=== PATIENT | female | born 1950 | race African-American/Black ===

== ENCOUNTER 2017-01-02 05:52 | Observation (INO) ==
[2017-01-02] MEDS ORDERED: NS 1,000 ML IV ONE (06:33)
[2017-01-02] MEDS ORDERED: SALINE FLUSH 10ml SYRINGE IVF PRN (06:33)
--- OUTSIDE RECORDS SUMMARY | 2017-01-02 06:46 | External Medical Summary ---
:1950 Author Organization eClinicalWorks Care Team Providers Name Role Phone Nate Brock Provider Role Unavailable Allergies No Known Allergies Problems Problem Type Condition Code Onset Dates Condition Status Problem Angina pectoris I20.9 Active Problem Hypertension I10 Active Problem Palpitation R00.2 Active Assessment Angina pectoris I20.9 Active Medications Medication Code System Code Instructions Start Date End Date Status Dosage Nitrostat [facility] 75336-419 0.4 MG Sublingual May 07, as directed 8-13 as needed for 2015 chest pain Results No Known Results Summary Purpose eClinicalWorks Submission
--- NOTE | 2017-01-02 06:56 | Emergency Department Report ---
Abdominal Pain HPI - General Chief Complaint: Abdominal Pain Stated Complaint: upper abd pain Time Seen by Provider: 01/02/17 06:33 Source: patient Mode of arrival: ambulatory Limitations: no limitations - History of Present Illness HPI narrative: 66yo woman presents to the ER this AM with epigastric abdominal pain. Pain became severe this AM around 0200; it woke pt from sleep. She has a h/o acid reflux - takes nexium daily. She also has a 'cardiac history'. Pt took prilosec , nexium, and ibuprofen without relief of her sx. She has had a cholecystectomy , appendectomy, and hysterectomy. No known h/o SBO. MD complaint: abdominal pain Onset (ago): hour(s) Consistency: constant Location: epigastric Severity: severe Severity scale (1-10): 8 Quality: cramping, stabbing, sharp Radiation: none Migration to: no migration Relieving factors: nothing Exacerbating factors: movement Context: history of similar episodes Associated symptoms: denies other symptoms Treatments prior to arrival: NSAIDs, antacids - Related Data Home Medications Medication Instructions Recorded Confirmed Amlodipine Besylate 5 mg PO DAILY #0 03/06/15 01/02/17 Aspirin 81 mg PO DAILY #0 03/06/15 01/02/17 Calcium Carb/Vitamin D3/Vit K1 1 tab PO DAILY #0 03/06/15 01/02/17 [Calcium + D Soft Chewable Tab] hydroCHLOROthiazide 25 mg PO DAILY #0 03/06/15 01/02/17 [Hydrochlorothiazide] Clopidogrel Bisulfate [Plavix] 75 mg PO DAILY #0 02/02/16 01/02/17 Ferrous Sulfate (Iron) 65 mg PO QID #0 02/02/16 01/02/17 Hydrocodone/Acetaminophen 1 tab PO QID PRN #0 02/02/16 01/02/17 [Hydrocodon-Acetaminoph 7.5-325] Propranolol HCl 20 mg PO DAILY #0 02/02/16 01/02/17 Levothyroxine Sodium 25 mcg PO DAILY 01/02/17 01/02/17 Omeprazole 20 mg PO DAILY 01/02/17 01/02/17 Pantoprazole Sodium [Protonix] 1 tab PO ACB 01/02/17 01/02/17 Previous Rx's Medication Instructions Recorded Hydromorphone [Dilaudid] 1 mg IVP Q3H PRN vial 01/02/17 Ondansetron Inj [Zofran] 4 mg IVP Q6H PRN vial 01/02/17 Piperacillin/Tazobactam [Zosyn] 3.375 gm IV Q6H vial 01/02/17 Allergies Allergy/AdvReac Type Severity Reaction Status Date / Time dicyclomine Allergy Severe BLISTERING, Verified 01/02/17 07:56 N/V gabapentin Allergy Unknown Verified 01/02/17 07:56 ketorolac Allergy Unknown HIVES Verified 01/02/17 07:56 lisinopril Allergy Unknown Verified 01/02/17 07:56 losartan Allergy Unknown Verified 01/02/17 07:56 monosodium glutamate Allergy Unknown ANAPHYLACTIC Verified 01/02/17 07:56 SHOCK NSAIDS (Non-Steroidal Allergy Unknown Verified 01/02/17 07:56 Anti-Inflamma pregabalin Allergy Unknown Verified 01/02/17 07:56 Sulfa (Sulfonamide Allergy Unknown Verified 01/02/17 07:56 Antibiotics) tramadol Allergy Unknown Verified 01/02/17 07:56 SSRI Allergy Unknown Uncoded 01/02/17 07:56 Review of Systems All systems: reviewed and negative except as stated Gastrointestinal: Reports: as per HPI, abdominal pain, nausea PFSH Medical History Updates: HTN. Hypothyroid. CAD. HL. Iron def anemia. Osteopenia Physical Exam - Limitations Limitations: no limitations - General General appearance: alert, in no apparent distress - Normal Exams: Head:: Normocephalic without trauma Eyes:: Pupils are PERRLA w/ EOMI, No scleral icterus, irritation, or foreign bodies noted ENMT:: No facial trauma, nasal exudates, pharyngeal erythema, or exudates are noted Neck:: Full range of motion, without adenopathy Lymphatic:: No lymphadenopathy Musculoskeletal:: No tenderness, or deformity noted Integumentary:: No rashes, hives, or bruising noted Neurological:: Patient is alert, and oriented Psychiatric:: Patient exhibits, appropriate attention - Chest Chest inspection: Present: normal inspection, symmetric chest wall rise. Absent : tenderness, rash - Respiratory Respiratory exam: Present: normal lung sounds bilaterally. Absent: respiratory distress, wheezes, prolonged expiratory phase - Cardiovascular Cardiovascular exam: Present: bradycardia, irregular rhythm (Occasional extra beats), normal heart sounds, +S1, +S2. Absent: systolic murmur, diastolic murmur, +S3, +S4 - Abdominal Exam Abdominal exam: Present: soft, tenderness, normal bowel sounds, Li's sign. Absent: distention, guarding, rebound, rigidity, psoas sign, obturator sign, heel tap sign, Rovsing's sign, tenderness at McBurney's Point, hernia Abdominal tenderness: Present: RUQ, RLQ, epigastrium Course - Consultations Consultation #1: Dr. Mckinney: If pt needs intervention, will not be able to treat here. Would need GI specialist. Recommend discussion with hospitalist to determine dispo. Time: 09:52 Consultation #2: Hospitalist: Willing to admit pt. Time: 09:53 Consultation #3: [facility]: Dr. King will accept; may take several hours for a bed to open up. Time: 09:59 Vital Signs Temperature 97.8 F 01/02/17 05:53 Pulse Rate 90 01/02/17 05:53 Respiratory Rate 16 01/02/17 05:53 Blood Pressure 141/65 H 01/02/17 05:53 Pulse Oximetry 95 01/02/17 05:53 Temperature 97.8 F 01/02/17 05:53 Pulse Rate 58 L 01/02/17 06:49 Respiratory Rate 16 01/02/17 05:53 Blood Pressure 141/65 H 01/02/17 05:53 Pulse Oximetry 95 01/02/17 05:53 Abdominal Pain - MDM Narrative Medical decision making narrative: After discussing LFT elevation, and after ordering follow up testing to determine source of liver failure, pt then begins to admit that she may be taking 'too much' tylenol. Uses norco for fibromyalgia pain and has been using extra strength tylenol for tooth. Based on what pt describes, pt is taking 3200- 3300mg daily. Pt unable to give UA until almost 2.5hrs into ER visit. After discussion with GS and hospitalist, contacted [facility] at pts preference. Dr. King accepts pt for txfr, when bed available. After waiting for 2 hours, [facility] will not have an ICU bed available until this evening. Hospitalist contacted for obs admission until bed available; pt accepted for obs in CCU. - Differential Diagnosis Differential diagnosis: Likely: abdominal pain, calculus of kidney, constipation , diverticulitis, gastroenteritis, pancreatitis, small bowel obstruction - Medical Records Attestation: I reviewed the patient's medical records. - Lab Data Attestation: I reviewed the patient's lab results. Result diagrams: 01/02/17 06:48 01/02/17 06:48 - Radiology Data Attestation: I reviewed the patient's radiology results. KUB: Impression: 1. Increased basilar markings some possibly due to some bibasilar mild atelectatic change with no cardiac decompensation identified. 2. Moderate volume of stool with overall nonspecific gas pattern. CT Abd/pelv: Impression: 1. Particularly prominent extra hepatic portion of the biliary tree measuring 2 cm. Patient did show pneumobilia and slight prominence of the bile ducts. Gallbladder has been previously removed. 2. Multiple small nonobstructing stones in the right kidney. 3. No obstruction to the bowel or inflammatory changes noted. 4. Multiple calcifications are both sides of the pelvis although, none definitively suggests being in the distal ureters. Neither kidney showed obstructive uropathy. - EKG Data EKG #1 EKG attestation: Yes: I reviewed and interpreted this EKG. EKG shows normal: sinus rhythm, axis, intervals, QRS complexes, ST-T waves Rate: bradycardia Disposition Clinical Impression: Transaminitis, Pneumobilia Disposition: 02 To [facility] Condition: Stable for Transport Time of Disposition: 11:36 - Seen By: physician
[2017-01-02] MEDS ORDERED: ONDANSETRON 4 MG/2 ML INJECTION IVP ONE ×2 (07:04→07:59)
[2017-01-02] MEDS ORDERED: MORPHINE SULFATE 2mg INJECTION IVP ONE (07:13)
--- NOTE | 2017-01-02 08:05 | XRay Report ---
Indication: Abd pain XR acute abdomen series: Comparison: None Technique: Single view chest supine and erect films of the abdomen Findings: Patient shows shallow inspiratory effort with some mild probable basilar atelectasis or chronic scarring. Heart is not enlarged and no central vascular congestion is appreciated. Supine and erect films of the abdomen showed moderate volume of stool in the bowel without free air or localized point of obstruction. Mild rotoscoliosis in the thoracolumbar spine without any individual vertebral body showing acute abnormality. Impression: 1. Increased basilar markings some possibly due to some bibasilar mild atelectatic change with no cardiac decompensation identified. 2. Moderate volume of stool with overall nonspecific gas pattern. .
[2017-01-02] MEDS: MORPHINE SULFATE 4mg INJECTION IVP PRN ×3 (08:09→18:40)
--- NOTE | 2017-01-02 09:46 | CT Scan Report ---
Indication: Abd pain; hepatitis CT abdomen pelvis w con: Comparison: Plain film the abdomen 01/02/2017 Technique: Patient scanned from above the diaphragm to below the pubic symphysis after 90 cc Omni 300 intravenous contrast is utilized. Dose reduction imaging technology is used with reformatted sagittal and coronal images. Findings: Heart size is within normal limits. Bilateral atelectatic changes are seen in the lung bases. Liver shows pneumobilia. The common duct is quite prominent measuring nearly 2 cm pancreatic head. The gallbladder has been previously removed. Pancreas showed no focal lesions. The pancreatic duct is measuring 3 mm. Spleen is normal in size and texture. Kidneys demonstrate similar function. Nonobstructing stones are identified on the right side where patient showed several stones measuring from 3 to 5 mm. Retroperitoneum is unremarkable. Visualized small and large bowel showed no acute findings. Bladder contour is unremarkable. Multiple soft tissue calcifications are seen in both sides of the pelvis. Neither ureter seem significantly dilated. Reformatted imaging showed degenerative changes particularly at the mid lumbar region where there is disc space narrowing and degenerative changes noted. No acute fracture seen. Impression: 1. Particularly prominent extra hepatic portion of the biliary tree measuring 2 cm. Patient did show pneumobilia and slight prominence of the bile ducts. Gallbladder has been previously removed. 2. Multiple small nonobstructing stones in the right kidney. 3. No obstruction to the bowel or inflammatory changes noted. 4. Multiple calcifications are both sides of the pelvis although, none definitively suggests being in the distal ureters. Neither kidney showed obstructive uropathy. .
[2017-01-02] MEDS ORDERED: PIPERACILLIN/TAZOBACTAM 3.375 GM in NS 100 ML IV ONE (09:58)
[2017-01-02] MEDS ORDERED: HYDROMORPHONE 2 MG/ML INJECTION IVP ONE (09:58)
[2017-01-02] MEDS ORDERED: ONDANSETRON 4 MG/2 ML INJECTION IVP PRN (12:18)
[2017-01-02] MEDS: NS 1,000 ML IV SCH ×2 (12:35→20:18)
[2017-01-02] MEDS ORDERED: HYDROMORPHONE 2 MG/ML INJECTION IVP PRN (13:07)
[2017-01-02] MEDS: PIPERACILLIN/TAZOBACTAM 3.375 GM in NS 100 ML IV SCH ×2 (13:24→18:34)
[2017-01-02] MEDS: HYDROMORPHONE 2 MG/ML INJECTION IVP PRN ×3 (13:29→20:41)
--- NOTE | 2017-01-02 13:39 | History & Physical Report ---
<Gracie Duncan - Last Filed: 01/02/17 13:41> History of Present Illness Date: 01/02/17 Chief complaint: abdominal pain HPI: Patient is a 66 yo female who presented to ER this am with abdominal pain which became severe at 0200. Pt states the pain woke her from sleep. She took Prilosec, Nexium and ibuprofen w/o relief. She usually takes Nexium qd for GERD. She state she started having pain about 3-4 days ago but it became severe early this am. She started having nausea and vomiting today. Last p.o. intake was last evening. Rates current pain at 8/10 (this is after she has had morphine and Dilaudid in ER.) She reports she routinely takes [place] 7.5 - 2 pills BID for fibromyalgia pain. States she had some abdominal pain 2-3 weeks ago but it was never this bad and it spontaneously resolved. She has problems with off and on constipation/diarrhea. Per ER note: "After discussing LFT elevation, and after ordering follow up testing to determine source of liver failure, pt then begins to admit that she may be taking 'too much' tylenol. Uses norco for fibromyalgia pain and has been using extra strength tylenol for tooth. Based on what pt describes, pt is taking 3200-3300mg daily." Patient interviewed and examined in the ED with her sister at the bedside. Patient is clearly in pain and sedated. SHe is able to answer questions but frequently dozes off. Review of Systems All systems PM: 10-point ROS was reviewed, no additional remarkable complaints except - Constitutional Constitutional: Present: fatigue - Respiratory Respiratory Comments: Pain in abdomen with deep breathing - Gastrointestinal Gastrointestinal: Present: abdominal pain, nausea, vomiting PFSH Past medical history Hypertension Hyperlipidemia Coronary artery disease Chronic kidney disease Hypothyroidism Diverticulosis Osteoarthritis Osteopenia Iron deficiency anemia Surgical History: Hysterectomy/BSO, cardiac stent (2017), appendectomy, cholecystectomy Family History: Dad at age 58-COPD, CAD Mother at age 80-CVA, bladder cancer, heart problems Sister-hypertension, osteoarthritis - Social History Smoking status: Never smoker Substance use type: does not use Alcohol intake frequency: holidays/special occasions only Housing: apartment Household members: significant other Current occupational status: retired Social history: PCP-Dr. Howard [employer]-Dr. Brock DPOA-H is her sister, Manuela Medications Home Medications Medication Instructions Recorded Confirmed Type Amlodipine Besylate 5 mg PO DAILY #0 03/06/15 01/02/17 History Aspirin 81 mg PO DAILY #0 03/06/15 01/02/17 History Calcium Carb/Vitamin D3/Vit K1 1 tab PO DAILY #0 03/06/15 01/02/17 History [Calcium + D Soft Chewable Tab] hydroCHLOROthiazide 25 mg PO DAILY #0 03/06/15 01/02/17 History [Hydrochlorothiazide] Clopidogrel Bisulfate [Plavix] 75 mg PO DAILY #0 02/02/16 01/02/17 History Ferrous Sulfate (Iron) 65 mg PO QID #0 02/02/16 01/02/17 History Hydrocodone/Acetaminophen 1 tab PO QID PRN #0 02/02/16 01/02/17 History [Hydrocodon-Acetaminoph 7.5-325] Propranolol HCl 20 mg PO DAILY #0 02/02/16 01/02/17 History Levothyroxine Sodium 25 mcg PO DAILY 01/02/17 01/02/17 History Omeprazole 20 mg PO DAILY 01/02/17 01/02/17 History Pantoprazole Sodium [Protonix] 1 tab PO ACB 01/02/17 01/02/17 History Allergies Allergy/AdvReac Type Severity Reaction Status Date / Time dicyclomine Allergy Severe BLISTERING, Verified 01/02/17 07:56 N/V gabapentin Allergy Unknown Verified 01/02/17 07:56 ketorolac Allergy Unknown HIVES Verified 01/02/17 07:56 lisinopril Allergy Unknown Verified 01/02/17 07:56 losartan Allergy Unknown Verified 01/02/17 07:56 monosodium glutamate Allergy Unknown ANAPHYLACTIC Verified 01/02/17 07:56 SHOCK NSAIDS (Non-Steroidal Allergy Unknown Verified 01/02/17 07:56 Anti-Inflamma pregabalin Allergy Unknown Verified 01/02/17 07:56 Sulfa (Sulfonamide Allergy Unknown Verified 01/02/17 07:56 Antibiotics) tramadol Allergy Unknown Verified 01/02/17 07:56 SSRI Allergy Unknown Uncoded 01/02/17 07:56 Exam Vital Signs: Temperature 97.8 F 01/02/17 05:53 Pulse Rate 106 H 01/02/17 12:30 Respiratory Rate 20 01/02/17 12:00 Blood Pressure 147/70 H 01/02/17 12:00 Pulse Oximetry 91 01/02/17 11:30 - Constitutional Present: moderate distress (appears to be in pain, drowsy from pain medication) , well nourished, well developed - Routine HEENT Exam Head: Present: normocephalic, atraumatic Eye: Present: EOMI, PERRL ENT: Present: mucous membranes dry, oropharynx clear - Routine Neck Exam Present: supple. Absent: lymphadenopathy - Routine Respiratory Exam Present: CTA bilaterally. Absent: wheezes - Routine Cardiovascular Exam Present: RRR, S1, S2. Absent: murmur - Routine Abdominal Exam Present: soft, tenderness (significant tenderness in the left upper quadrant and epigastric region. Mild to moderate tenderness diffuse), non distended. Absent: normoactive bowel sounds (hypoactive bowel sounds), rigid - Routine Extremities Exam Present: no edema, normal capillary refill - Routine Skin Exam Present: dry, warm - Routine Neurological Exam Present: oriented X3, CN II-XII intact. Absent: alert (drowsy, but able to answer questions appropriately) - Routine Psychiatric Exam Present: normal affect, cooperative Results - Labs CBC & Chem 7: 01/02/17 06:48 01/02/17 06:48 Labs: Laboratory Tests 01/02/17 01/02/17 01/02/17 06:48 08:53 08:53 Salicylates < 1.0 L Urine Opiates Screen Positive Ur Oxycodone Screen Negative Urine Methadone Screen Negative Ur Propoxyphene Screen Negative Acetaminophen < 10 L Ur Barbiturates Screen Negative U Tricyclic Antidepress Negative Ur Phencyclidine Scrn Negative Ur Amphetamines Screen Negative U Methamphetamines Scrn Negative U Benzodiazepines Scrn Positive Urine Cocaine Screen Negative U Cannabinoids Screen Negative Ur Drug Screen Confirm Sent out Ur Drug Screen Info Pending Alcohol, Quantitative <10 Laboratory Tests 01/02/17 01/02/17 06:48 08:53 AST 287 H ALT 152 H Alkaline Phosphatase 150 H Troponin I < 0.012 Lipase 182 Ur Collection Type Urine, clean catch Urine Color Yellow Urine Clarity Clear Urine pH 6.5 Ur Specific Picher 1.010 L Urine Protein Negative Urine Glucose (UA) Negative Urine Ketones Negative Urine Occult Blood Negative Urine Nitrate Negative Urine Bilirubin Negative Urine Urobilinogen 1.0 Ur Leukocyte Esterase Negative - ECG Data Tracing #1 Arrhythmias present: sinus darien - Imaging and Cardiology Abdominal x-ray Additional comments: Impression: 1. Increased basilar markings some possibly due to some bibasilar mild atelectatic change with no cardiac decompensation identified. 2. Moderate volume of stool with overall nonspecific gas pattern. CT scan - abdomen Additional comments: Indication: Abd pain; hepatitis CT abdomen pelvis w con: Comparison: Plain film the abdomen 01/02/2017 Technique: Patient scanned from above the diaphragm to below the pubic symphysis after 90 cc Omni 300 intravenous contrast is utilized. Dose reduction imaging technology is used with reformatted sagittal and coronal images. Findings: Heart size is within normal limits. Bilateral atelectatic changes are seen in the lung bases. Liver shows pneumobilia. The common duct is quite prominent measuring nearly 2 cm pancreatic head. The gallbladder has been previously removed. Pancreas showed no focal lesions. The pancreatic duct is measuring 3 mm. Spleen is normal in size and texture. Kidneys demonstrate similar function. Nonobstructing stones are identified on the right side where patient showed several stones measuring from 3 to 5 mm. Retroperitoneum is unremarkable. Visualized small and large bowel showed no acute findings. Bladder contour is unremarkable. Multiple soft tissue calcifications are seen in both sides of the pelvis. Neither ureter seem significantly dilated. Reformatted imaging showed degenerative changes particularly at the mid lumbar region where there is disc space narrowing and degenerative changes noted. No acute fracture seen. Impression: 1. Particularly prominent extra hepatic portion of the biliary tree measuring 2 cm. Patient did show pneumobilia and slight prominence of the bile ducts. Gallbladder has been previously removed. 2. Multiple small nonobstructing stones in the right kidney. 3. No obstruction to the bowel or inflammatory changes noted. 4. Multiple calcifications are both sides of the pelvis although, none definitively suggests being in the distal ureters. Neither kidney showed obstructive uropathy. . Assessment and Plan (1) Pneumobilia Current visit: Yes Status: Acute (2) Transaminitis Current visit: Yes Status: Acute (3) Abdominal pain Current visit: Yes Status: Acute DVT Prophylaxis: SCD's Resuscitation Status: Full Code Assessment and Plan: Assessment Severe, acute abdominal pain Acute hepatitis Possible chronic Tylenol overdose Pneumobilia Hypertension Hyperlipidemia Coronary artery disease (stent x 1) Chronic kidney disease Hypothyroidism Diverticulosis Osteoarthritis Osteopenia Iron deficiency anemia Plan Admit to CCU under hospitalist service, Dr. Gomez attending, for close monitoring and pain control until patient can be accepted into CCU in [place]. (ED physician has been in contact with Dr. King at [facility]. Patient may need ERCP which cannot be performed at this facility. They will accept in transfer, but have no bed available until 1800.) Telemetry. O2 PRN Initiate Zosyn for empiric coverage of bacterial GI pathogens SCD's for DVT prophylaxis. NPO. Dilaudid/Morphine IV for pain control Normal saline for gentle hydration Hold home meds for now. Plan to transfer to [place] when bed is available. Pt requests to be full code. Care to return to PCP, Dr. Howard, upon DC from [facility]. Hospital Course Summary Disclaimer: The visit summary below is not to be considered part of the above Progress Note. Hospital Course: Assessment Severe, acute abdominal pain Acute hepatitis Possible chronic Tylenol overdose Pneumobilia Hypertension Hyperlipidemia Coronary artery disease (stent x 1) Chronic kidney disease Hypothyroidism Diverticulosis Osteoarthritis Osteopenia Iron deficiency anemia 01/02/17 - Admission to CCU Admit to CCU under hospitalist service, Dr. Gomez attending, for close monitoring and pain control until patient can be accepted into CCU in [place]. (ED physician has been in contact with Dr. King at [facility]. Patient may need ERCP which cannot be performed at this facility. They will accept in transfer, but have no bed available until 1800.) Telemetry. O2 PRN Initiate Zosyn for empiric coverage of bacterial GI pathogens SCD's for DVT prophylaxis. NPO. Dilaudid/Morphine IV for pain control Normal saline for gentle hydration Hold home meds for now. Plan to transfer to [place] when bed is available. Pt requests to be full code. Care to return to PCP, Dr. Howard, upon DC from [facility]. <Aris Gomez - Last Filed: 01/02/17 15:14> History of Present Illness Date: 01/02/17 [facility] Patient Stated Medical History Angina Yes Coronary Artery Disease Yes Gastroesophageal Reflux Yes Disease Ulcer Yes Hx Renal Disease Yes Hx Urinary Tract Infection Yes Osteoarthritis Yes: HANDS Exam Vital Signs: Temperature 97.8 F 01/02/17 05:53 Pulse Rate 106 H 01/02/17 12:30 Respiratory Rate 20 01/02/17 12:00 Blood Pressure 147/70 H 01/02/17 12:00 Pulse Oximetry 91 01/02/17 11:30 Height/Weight/BMI: Height 1.6 m Weight 68.9 kg Body Mass Index 26.9 Results - Labs CBC & Chem 7: 01/02/17 06:48 01/02/17 06:48 Assessment and Plan (1) Abdominal pain Current visit: Yes Status: Acute (2) Pneumobilia Current visit: Yes Status: Acute (3) Transaminitis Current visit: Yes Status: Acute Assessment and Plan: Assessment Severe, acute abdominal pain Acute hepatitis Possible chronic Tylenol overdose Pneumobilia Hypertension Hyperlipidemia Coronary artery disease (stent x 1) Chronic kidney disease Hypothyroidism Diverticulosis Osteoarthritis Osteopenia Iron deficiency anemia Have independently interviewed and examined pt. Chart reviewed. Case discussed with ED physician and my PA. Care plan developed with my supervision; agree with above. Started having ab pain yesterday-diffuse. Woke this am with severe pain all throughout abdomen. Medications she used at home did not help. Increased nausea and some emesis. Feels very chilled. Very weak and unsteady in general. Breathing more short-some chest congestion. Heart racing. Lungs: decreased, no distress on O2 CV: tachy, regular AB: soft, diffusely tender. BS decreased Gen: appears very tired and weak. Plan: Will place in OBS status at [facility] CCU until CCU bed at [facility] opens. NPO. Continue Zosyn for GI coverage. IVF for volume support. SCD. Control pain and nausea. Full code. Hospital Course Summary Disclaimer: The visit summary below is not to be considered part of the above Progress Note.
[2017-01-02 13:52] VITALS: BMI 26.9
[2017-01-02 20:26] VITALS: RESP 23
--- NOTE | 2017-01-02 20:29 | Discharge Summary ---
Discharge Information Date of admission: 01/02/17 12:15 Anticipated date of discharge: 01/02/17 Attending Physician: Aris Gomez MD Primary care physician: Walter Howard II, MD - Discharge Diagnosis (1) Abdominal pain Status: Acute (2) Pneumobilia Status: Acute (3) Transaminitis Status: Acute Discharge Diagnosis: Discharge diagnosis Severe, acute abdominal pain Pneumobilia Associated conditions and complications Acute hepatitis Possible chronic Tylenol overdose Hypertension Hyperlipidemia Coronary artery disease (stent x 1) Chronic kidney disease Hypothyroidism Diverticulosis Osteoarthritis Osteopenia Iron deficiency anemia - Laboratory Labs: Admit Lab 01/02/17 06:48 WBC 10.4 Hgb 11.0 L Hct 32.9 L MCV 95.4 Plt Count 262 Neut % (Auto) 81.2 H Lymph % (Auto) 12.7 L [place] % (Auto) 5.0 Eos % (Auto) 0.6 Admit Lab 01/02/17 06:48 Sodium 139 Potassium 4.0 Chloride 100 Carbon Dioxide 28 Anion Gap 11 BUN 33.0 H Creatinine 1.3 H GFR Calculation 41 BUN/Creatinine Ratio 25 Glucose 138 H Calculated Osmolality 277 Calcium 9.3 Total Bilirubin 0.70 AST 287 H Alkaline Phosphatase 150 H Troponin I < 0.012 Albumin 4.0 Globulin 3.9 H Albumin/Globulin Ratio 1.0 L Lipase 182 - Radiology Radiology: Date of Exam: 01/02/17 Type of Exam: XR acute abdomen series Findings: Patient shows shallow inspiratory effort with some mild probable basilar atelectasis or chronic scarring. Heart is not enlarged and no central vascular congestion is appreciated. Supine and erect films of the abdomen showed moderate volume of stool in the bowel without free air or localized point of obstruction. Mild rotoscoliosis in the thoracolumbar spine without any individual vertebral body showing acute abnormality. Impression: 1. Increased basilar markings some possibly due to some bibasilar mild atelectatic change with no cardiac decompensation identified. 2. Moderate volume of stool with overall nonspecific gas pattern. Date of Exam: 01/02/17 Type of Exam: CT abdomen pelvis w con Reason for Exam(s): Abd pain; hepatitis Findings: Heart size is within normal limits. Bilateral atelectatic changes are seen in the lung bases. Liver shows pneumobilia. The common duct is quite prominent measuring nearly 2 cm pancreatic head. The gallbladder has been previously removed. Pancreas showed no focal lesions. The pancreatic duct is measuring 3 mm. Spleen is normal in size and texture. Kidneys demonstrate similar function. Nonobstructing stones are identified on the right side where patient showed several stones measuring from 3 to 5mm. Retroperitoneum is unremarkable. Visualized small and large bowel showed no acute findings. Bladder contour is unremarkable. Multiple soft tissue calcifications are seen in both sides of the pelvis. Neither ureter seem significantly dilated. Reformatted imaging showed degenerative changes particularly at the mid lumbar region where there is disc space narrowing and degenerative changes noted. No acute fracture seen. Impression: 1. Particularly prominent extra hepatic portion of the biliary tree measuring 2 cm. Patient did show pneumobilia and slight prominence of the bile ducts. Gallbladder has been previously removed. 2. Multiple small nonobstructing stones in the right kidney. 3. No obstruction to the bowel or inflammatory changes noted. 4. Multiple calcifications are both sides of the pelvis although, none definitively suggests being in the distal ureters. Neither kidney showed obstructive uropathy. History of Present Illness HPI: Patient is a 66 yo female who presented to ER this am with abdominal pain which became severe at 0200. Pt states the pain woke her from sleep. She took Prilosec, Nexium and ibuprofen w/o relief. She usually takes Nexium qd for GERD. She state she started having pain about 3-4 days ago but it became severe early this am. She started having nausea and vomiting today. Last p.o. intake was last evening. Rates current pain at 8/10 (this is after she has had morphine and Dilaudid in ER.) She reports she routinely takes [place] 7.5 - 2 pills BID for fibromyalgia pain. States she had some abdominal pain 2-3 weeks ago but it was never this bad and it spontaneously resolved. She has problems with off and on constipation/diarrhea. Per ER note: "After discussing LFT elevation, and after ordering follow up testing to determine source of liver failure, pt then begins to admit that she may be taking 'too much' tylenol. Uses norco for fibromyalgia pain and has been using extra strength tylenol for tooth. Based on what pt describes, pt is taking 3200-3300mg daily." Patient interviewed and examined in the ED with her sister at the bedside. Patient is clearly in pain and sedated. She is able to answer questions but frequently dozes off. For complete details of the H&P refer to that document Objective Vital signs: Temperature 97.8 F 01/02/17 05:53 Pulse Rate 115 H 01/02/17 16:00 Respiratory Rate 20 01/02/17 12:00 Blood Pressure 147/70 H 01/02/17 12:00 Pulse Oximetry 91 01/02/17 11:30 Height/Weight/BMI: Height 1.6 m Weight 68.9 kg Body Mass Index 26.9 Hospital Course This is a general summary of the patient's hospital course. For more details refer to the complete medical record. Hospital course: Assessment Severe, acute abdominal pain Acute hepatitis Possible chronic Tylenol overdose Pneumobilia Hypertension Hyperlipidemia Coronary artery disease (stent x 1) Chronic kidney disease Hypothyroidism Diverticulosis Osteoarthritis Osteopenia Iron deficiency anemia 01/02/17 - Admission to CCU Admit to CCU under hospitalist service, Dr. Gomez attending, for close monitoring and pain control until patient can be accepted into CCU in [place]. (ED physician has been in contact with Dr. King at [facility]. Patient may need ERCP which cannot be performed at this facility. They will accept in transfer, but have no bed available until 1800.) Telemetry. O2 PRN Initiate Zosyn for empiric coverage of bacterial GI pathogens SCD's for DVT prophylaxis. NPO. Dilaudid/Morphine IV for pain control Normal saline for gentle hydration Hold home meds for now. Plan to transfer to [place] when bed is available. Pt requests to be full code. Care to return to PCP, Dr. Howard, upon DC from [place] facility. Time spent with patient: discharge greater than 30 minutes DVT Prophylaxis: SCD's Discharge Plan - Med Rec/Dispo Referrals/Follow Up: Walter Howard II, MD [Family Provider] - (Will need follow up after discharge from [facility]. ) Prescriptions: New Ondansetron Inj [Zofran] 4 mg IVP Q6H PRN vial PRN Reason: Nausea Piperacillin/Tazobactam [Zosyn] 3.375 gm IV Q6H vial Hydromorphone [Dilaudid] 1 mg IVP Q3H PRN vial PRN Reason: Pain Continue Amlodipine Besylate 5 mg PO DAILY #0 Aspirin 81 mg PO DAILY #0 Ferrous Sulfate (Iron) 65 mg PO QID #0 Propranolol HCl 20 mg PO DAILY #0 Hydrocodone/Acetaminophen [Hydrocodon-Acetaminoph 7.5-325] 1 tab PO QID PRN # 0 PRN Reason: PAIN Pantoprazole Sodium [Protonix] 1 tab PO ACB Omeprazole 20 mg PO DAILY hydroCHLOROthiazide [Hydrochlorothiazide] 25 mg PO DAILY #0 Calcium Carb/Vitamin D3/Vit K1 [Calcium + D Soft Chewable Tab] 1 tab PO DAILY #0 Clopidogrel Bisulfate [Plavix] 75 mg PO DAILY #0 Levothyroxine Sodium 25 mcg PO DAILY Discharge Instructions/Outpatient Orders: Provider Discharge Instructions Location: Determined By Patient - Disposition 02 To [facility] Acute Care - Attestation Attestation Narrative: 01/02/17 20:35 I have independently interviewed and examined patient prior to discharge. Medically stable for discharge to [facility] CCU via [facility].
[2017-01-02 23:06] VITALS: BP 96/53; PULSE 119; TEMP 100.3; O2SAT 98
== END 2017-01-02 20:57 | disposition short-term general hospital (02) ==
LOC: ED 05:52 → CCU 05:52
PROVIDERS: ADMIT Hospitalist; ATTEND Hospitalist